=== PATIENT | female | born 1975 | race Caucasian/White ===

== ENCOUNTER 2020-12-03 20:06 | Emergency (ER) | payer OTHER ==
[~2020-12-03] VITALS: Ht 167.6 cm; Wt 70.3 kg
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
--- NOTE | 2020-12-03 20:19 | NUR ---
DR. FALCON AT BEDSIDE, MSE IN PROGRESS.
[2020-12-03] MEDS ORDERED: LIDOCAINE 1%-EPI 1:100,000 20 ML VIAL IJ ONE (20:30)
--- NOTE | 2020-12-03 20:50 | NUR ---
LAB AT BEDSIDE.
[2020-12-03 20:56] LABS: HEMATOCRIT 38.8 % (31.2-41.9); MEAN CORPUSCULAR HEMOGLOBIN 33.1 uug (24.7-32.8); MEAN CORPUSCULAR VOLUME 93.9 fL (75.5-95.3); PLATELET COUNT (AUTO) 277 K/uL (179-408)
[2020-12-03 20:59] LABS: CREATININE 0.8 mg/dL (0.6-1.3); POTASSIUM 3.8 mmol/L (3.5-5.1)
[2020-12-03 21:05] LABS: BILIRUBIN,DIRECT 0.1 mg/dL (0.0-0.2); BILIRUBIN,TOTAL 0.4 mg/dL (0.2-1.0); TOTAL PROTEIN, SERUM 7.6 g/dL (6.4-8.2)
[2020-12-03] MEDS ORDERED: ACETAMINOPHEN 325 MG TABLET ONE (21:29)
[2020-12-03] MEDS ORDERED: ONDANSETRON ODT 4 MG TAB.RAPDIS SL ONE (21:30)
[2020-12-03] MEDS ORDERED: ONDANSETRON ODT 4 MG TAB.RAPDIS ONE (21:38)
[2020-12-03] MEDS ORDERED: ACETAMINOPHEN 325 MG TABLET PO ONE (21:45)
[2020-12-03] MEDS ORDERED: ONDA4TAB5 PO (22:43)
--- NOTE | 2020-12-03 22:49 | NUR ---
Patient discharged to home in stable condition. Denies any pain/discomfort. Steady gait. Written and verbal after care instructions given. Patient verbalizes understanding of instructions. Stressed follow up or return to ER for worsening s/s. at bedside.
[2020-12-03 22:50] VITALS: BP 132/80
== END 2020-12-03 22:50 | disposition home or self-care (01) ==
LOC: ER 20:08
DX: R55 Syncope and collapse (principal); S01.81XA Laceration without foreign body of other part of head, initial encounter; W18.30XA Fall on same level, unspecified, initial encounter; Y92.89 Other specified places as the place of occurrence of the external cause; Z88.1 Allergy status to other antibiotic agents
CPT/HCPCS: 36415; 85025; 93005; A4663; Q0162